=== PATIENT | male | born 1970 | race Caucasian/White ===

== ENCOUNTER 2017-08-19 08:57 | Emergency (ER) | payer BC ==
[~2017-08-19] VITALS: Wt 113.4 kg
[2017-08-19] MEDS ORDERED: NAPROSYN500 MG PO (10:37)
== END 2017-08-19 10:56 | disposition home or self-care (01) ==
LOC: ED 08:57
DX: S86.912A Strain of unspecified muscle(s) and tendon(s) at lower leg level, left leg, initial encounter (principal); Z90.89 Acquired absence of other organs; Z98.890 Other specified postprocedural states; X50.1XXA Overexertion from prolonged static or awkward postures, initial encounter; Y93.89 Activity, other specified; Y92.89 Other specified places as the place of occurrence of the external cause; Y99.9 Unspecified external cause status

== ENCOUNTER 2019-10-12 08:49 | Emergency (ER) | payer BC ==
[~2019-10-12 08:49] MED LIST: NAPROSYN500 MG PO
== END 2019-10-12 09:25 | disposition expired ==
LOC: ED 09:00
DX: I46.9 Cardiac arrest, cause unspecified (principal); E11.9 Type 2 diabetes mellitus without complications